=== PATIENT | female | born 1985 | race African-American/Black ===

== ENCOUNTER → 2023-02-05 | Outpatient (CLI) | payer OTHER ==
[2023-02-05 11:54] LABS: ALBUMIN 4.1 g/dL (3.4-5.0); BILIRUBIN,DIRECT 0.2 mg/dL (0.00-0.20); BILIRUBIN,TOTAL 0.5 mg/dL (0.1-1.0); TOTAL PROTEIN, SERUM 7.9 g/dL (6.4-8.2)
[2023-02-06 04:07] LABS: HERPES SIMPLEX VIRUS-2 AB,IGG 5.09 index (0.00-0.90); HSV TYPE 1 AB, IGG <0.91 index (0.00-0.90)
== END | disposition home or self-care (01) ==
LOC: MSR 10:28
PROVIDERS: ATTEND Chiropractor
DX: S72.92XA Unspecified fracture of left femur, initial encounter for closed fracture (principal); S82.201A Unspecified fracture of shaft of right tibia, initial encounter for closed fracture; S82.401A Unspecified fracture of shaft of right fibula, initial encounter for closed fracture; K76.0 Fatty (change of) liver, not elsewhere classified; B00.9 Herpesviral infection, unspecified; X58.XXXA Exposure to other specified factors, initial encounter; Y93.89 Activity, other specified; Y92.89 Other specified places as the place of occurrence of the external cause; Y99.8 Other external cause status
CPT/HCPCS: 80076; 86695; 86696